=== PATIENT | female | born 1975 | race Caucasian/White ===

== ENCOUNTER 2019-03-26 14:06 | Emergency (ER) | payer OTHER ==
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
[2019-03-26 17:41] VITALS: BP 120/74
== END 2019-03-26 17:20 | disposition home or self-care (01) ==
LOC: ED 14:06
DX: S46.811A Strain of other muscles, fascia and tendons at shoulder and upper arm level, right arm, initial encounter (principal); S29.019A Strain of muscle and tendon of unspecified wall of thorax, initial encounter; Z79.899 Other long term (current) drug therapy; V49.49XA Driver injured in collision with other motor vehicles in traffic accident, initial encounter; Y93.89 Activity, other specified; Y92.410 Unspecified street and highway as the place of occurrence of the external cause; Y99.8 Other external cause status
CPT/HCPCS: 72040; 72070

== ENCOUNTER 2021-01-29 12:52 | Emergency (ER) | payer OTHER ==
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
[2021-01-29] MEDS ORDERED: IBUPROFEN 800 MG TAB PO ONE (13:20)
[2021-01-29 13:28] VITALS: BP 116/77
== END 2021-01-29 14:12 | disposition home or self-care (01) ==
LOC: ED 12:52
DX: M79.18 Myalgia, other site (principal); V89.2XXA Person injured in unspecified motor-vehicle accident, traffic, initial encounter; Y93.89 Activity, other specified; Y92.89 Other specified places as the place of occurrence of the external cause; Y99.8 Other external cause status
CPT/HCPCS: 99282